=== PATIENT | male | born 1970 | race African-American/Black ===

== ENCOUNTER 2020-12-13 11:44 | Outpatient (CLI) | payer MEDICARE | END 2020-12-13 11:45 | disposition home or self-care (01) | LOC: CSHRAD 11:44 | PROVIDERS: ATTEND Family Medicine Sports Medicine | DX: M72.2 Plantar fascial fibromatosis (principal) ==

== ENCOUNTER 2024-06-15 10:10 | Outpatient (CLI) | payer OTHER | END 2024-06-15 10:11 | disposition home or self-care (01) | LOC: CSHDTY/OP 10:10 | PROVIDERS: ATTEND Specialist | DX: E66.01 Morbid (severe) obesity due to excess calories (principal) | CPT/HCPCS: 97802 ==